=== PATIENT | female | born 1980 | race Two or more races ===

== ENCOUNTER 2016-06-25 15:02 | Emergency (ER) | payer OTHER ==
[2016-06-25 15:11] VITALS: PULSE 88; BMI 20.9
--- NOTE | 2016-06-25 15:46 | PDOC ---
History of Present Illness - General Chief Complaint: Shortness of Breath Stated Complaint: ABNORMAL LABS Time Seen by Provider: 06/25/16 15:22 History Source: Patient Exam Limitations: Language Barrier (translation provided by medical equipment technician) - History of Present Illness Initial Comments: 36 yo F 16 weeks presented to the ED with shortness of breath since last night. She was laying in bed and trying to sleep when the shortness of breath started with chest pain located in upper left chest, non-radiating, 5/10 , pressure like, worse with deep breath, not reproducible with touch/palpation. Denies exertional chest pain or sob, recent travel, hemoptysis, fever, chills. Past History - Past Medical History Allergies/Adverse Reactions: Allergies Allergy/AdvReac Type Severity Reaction Status Date / Time No Known Allergies Allergy Verified 06/25/16 15:08 - Psycho/Social/Smoking Cessation Hx Suicidal Ideation: No Smoking History: Never smoked Review of Systems - Review of Systems Able to Perform ROS?: Yes Is the patient limited Bahraini proficient: No Constitutional: No: Chills, Fever Respiratory: Yes: Shortness of Breath, SOB at Rest. No: Cough, SOB with Exertion Cardiac (ROS): Yes: Chest Pain ABD/GI: No: Abdominal cramping : No: Dysuria Neurological: Yes: Headache *Physical Exam - Vital Signs Last Vital Signs Temp Pulse Resp BP Pulse Ox 98.1 F 88 18 119/62 100 06/25/16 15:08 06/25/16 15:08 06/25/16 15:08 06/25/16 15:08 06/25/16 15:08 - Physical Exam General Appearance: No: Apparent Distress Respiratory/Chest: positive: Lungs Clear, Normal Breath Sounds Cardiovascular: positive: Regular Rhythm, Regular Rate, S1, S2, Murmur Gastrointestinal/Abdominal: negative: Distended, Guarding, Rebound, Tenderness Extremity: negative: Swelling, Calf Tenderness Neurologic: positive: Fully Oriented, Alert ED Treatment Course - LABORATORY CBC & Chemistry Diagram: 06/25/16 16:32 06/25/16 16:32 Medical Decision Making - Medical Decision Making 06/25/16 16:02 36 yo 16 weeks F c/o dyspnea with chest pain. Will obtain EKG, troponin to r/o ACS, d-dimer to r/o PE. 06/25/16 16:10 Discussed with patient through freelance interpreter/translator and explained risks of CTA during to r/o PE. Pt declined CTA if d-dimer is positive. 06/25/16 19:07 Will discharge the patient. All lab works within normal limits. *DC/Admit/Observation/Transfer Diagnosis at time of Disposition: Shortness of breath - Discharge Dispostion Disposition: HOME Condition at time of disposition: Stable Admit: No - Patient Instructions Printed Discharge Instructions: DI for Shortness of Breath Print Language: QATARI
--- NOTE | 2016-06-25 16:49 | PDOC ---
Attending Attestation - Resident Resident Name: MarreroSixto - ED Attending Attestation I have performed the following: I have examined & evaluated the patient, The case was reviewed & discussed with the resident, I agree w/resident's findings & plan, Exceptions are as noted - HPI HPI: 06/25/16 16:46 36-year-old female with no past medical history, approximately 16 weeks presents with chest pain short of breath since yesterday. Patient reports that she was doing nothing particular at the time when she developed shortness of breath and chest pressure. She reports of the chest pressure is constant and is pleuritic. There is no radiation. She is unsure if this is exertional. Denies fevers or chills. Denies abdominal pain or acid reflux conditions. Denies prior history of pulmonary embolism or blood clots. Patient denies recent traveling or recent surgery. She was seen by her doctor and was sent the ED for further evaluation. Family history significant for cardiac disease with her father but diagnosed when he was much older. - Physicial Exam PE: 06/25/16 16:48 GENERAL: Awake, alert, and fully oriented, in no acute distress. HEAD: No signs of trauma EYES: PERRLA, EOMI, sclera anicteric, conjunctiva clear ENT: Auricles normal inspection, hearing grossly normal, nares patent, oropharynx clear without exudates. NECK: Normal ROM, supple, no lymphadenopathy, JVD, or masses LUNGS: Breath sounds equal, clear to auscultation bilaterally. No wheezes, and no crackles HEART: Regular rate and rhythm, normal S1 and S2, no murmurs, rubs or gallops ABDOMEN: Soft, nontender, normoactive bowel sounds. No guarding, no rebound. No masses EXTREMITIES: Normal range of motion, no edema. No clubbing or cyanosis. No cords, erythema, or tenderness NEUROLOGICAL: Cranial nerves II through XII grossly intact. Normal speech, normal gait SKIN: Warm, Dry, normal turgor, no rashes or lesions noted. - Medical Decision Making 06/25/16 16:50 Given the , the patient will need to rule out for pulmonary embolism. Initially, I had discussed about getting a CAT scan of the chest to rule out pulmonary embolism. However, the patient has been having concerns for radiation given her . I have explained that there is some risk of radiation to the fetus. However, there are some concerns for pulmonary embolism given the pleuritic chest pain in her . Given the situation, we had currently agreed to send a d-dimer and reassess. However, we'll need to readdress once results back. Regardless, if the patient refuses CAT scan the chest, the patient does have capacity to do so. She is aware of the risks. If she should ultimately refuse, the patient will be doing so against medical advice. Heart Score/ECG Review - History History: Slightly suspicious - Electrocardiogram EKG: Normal - Age Age: </= 45 - Risk Factors Risk Factors Heart Score: Yes Positive family hx of cardiac disease Based on the list above the patient has:: 1-2 risk factors - Troponin Troponin: </= normal limit - Score Heart Score - Total: 1 #1 ECG reviewed & interpreted by me at: 15:20 06/25/16 16:45 NSR 85, no std/keri, normal axis, normal intervals, QTC 442 msec. No signs of right heart strain.
[2016-06-25 17:02] LABS: BASOPHIL 0.3 % (0-2.0); EOSINOPHIL 0.6 % (0-4.5); PLATELET COUNT 217 K/MM3 (134-434); RDW 13.3 % (11.6-15.6)
[2016-06-25] MEDS ORDERED: ACETAMINOPHEN 325 MG TABLET (FP) PO ONE (17:05)
[2016-06-25 17:18] LABS: ALBUMIN 3.5 g/dl (3.4-5.0); ANION GAP 9 (8-16); BILIRUBIN,TOTAL 0.4 mg/dL (0.2-1.0); CALCIUM 8.9 mg/dL (8.5-10.1); CO2 22 mmol/L (21-32); COCKROFT - GAULT 138.4905; CREATININE 0.5 mg/dL (0.55-1.02); GLUCOSE,RANDOM 75 mg/dL (74-106); SGOT/AST 13 U/L (15-37); SGPT/ALT 12 U/L (12-78); TOT PROT 6.6 g/dl (6.4-8.2)
[2016-06-25 17:20] LABS: ALK PHOS 59 U/L (45-117); TROPONIN I < 0.02 ng/ml (0.00-0.05)
[2016-06-25 17:22] LABS: MCH 30.5 pg (25.7-33.7); MCHC 34.5 g/dl (32.0-36.0); MEAN CELL VOLUME 88.4 fl (80-96); MEAN PLT VOLUME 9.6 fl (7.5-11.1); WHITE BLOOD COUNT 10.1 K/mm3 (4.0-10.0)
[2016-06-25] MEDS ORDERED: ACETAMINOPHEN 325 MG TABLET (FP) ONE (17:38)
[2016-06-25 18:09] LABS: INR 1.09 (0.82-1.09)
[2016-06-25 19:18] VITALS: BP 113/78; TEMP 98.3
--- NOTE | 2016-06-26 22:58 | EKG ---
Test Reason : Blood Pressure : / mmHG Vent. Rate : 085 BPM Atrial Rate : 085 BPM P-R Int : 136 ms QRS Dur : 074 ms QT Int : 372 ms P-R-T Axes : 050 057 053 degrees QTc Int : 442 ms NORMAL SINUS RHYTHM NORMAL ECG NO PREVIOUS ECGS AVAILABLE Confirmed by JERAMY VITAL MD ([id number]) on 06/26/2016 10:58:08 PM Referred By: Confirmed By:JERAMY VITAL MD
--- NOTE | 2016-06-28 17:34 | EKG ---
Test Reason : Blood Pressure : / mmHG Vent. Rate : 082 BPM Atrial Rate : 082 BPM P-R Int : 148 ms QRS Dur : 082 ms QT Int : 400 ms P-R-T Axes : 049 044 040 degrees QTc Int : 467 ms NORMAL SINUS RHYTHM NORMAL ECG WHEN COMPARED WITH ECG OF 25-JUN-2016 15:20, NO SIGNIFICANT CHANGE WAS FOUND Confirmed by JASON DOMINGUEZ MD ([id number]) on 06/28/2016 5:33:48 PM Referred By: Confirmed By:JASON DOMINGUEZ MD
== END 2016-06-25 19:17 | disposition home or self-care (01) ==
LOC: JER 15:02
DX: O26.892 Other specified pregnancy related conditions, second trimester (principal); R06.02 Shortness of breath; Z3A.16 16 weeks gestation of pregnancy
CPT/HCPCS: 36415; 80053; 82550; 83735; 83880; 84484; 85025; 85379; 85610; 85730; 93005; 93010; 99282-25

== ENCOUNTER 2016-11-18 05:05 | Inpatient (IN) | payer OTHER ==
[2016-11-18] MEDS ORDERED: AMPICILLIN 2 GM/100 ML BAG (PRE-DOCKED) IVPB ONE (06:00)
[2016-11-18] MEDS: ELECTROLYTE-148 SOLN 1,000 ML IV SCH (06:00)
[2016-11-18 06:14] LABS: BASOPHIL 0.5 % (0-2.0); EOSINOPHIL 2.5 % (0-4.5); MCH 30.3 pg (25.7-33.7); MCHC 34.5 g/dl (32.0-36.0); MEAN CELL VOLUME 87.9 fl (80-96); MEAN PLT VOLUME 9.5 fl (7.5-11.1); NEUTROPHILS 69.5 % (42.8-82.8); PLATELET COUNT 256 K/MM3 (134-434); RDW 12.9 % (11.6-15.6); WHITE BLOOD COUNT 12.1 K/mm3 (4.0-10.0)
[2016-11-18 06:29] LABS: INR 0.99 (0.82-1.09); PROTHROMBIN TIME (PATIENT) 10.9 SEC (9.98-11.88)
[2016-11-18 06:31] LABS: ACTIVATED PTT 28.1 SECONDS (26.9-34.4)
[2016-11-18 06:38] LABS: ANION GAP 10 (8-16); CALCIUM 8.7 mg/dL (8.5-10.1); CO2 21 mmol/L (21-32); CREATININE 0.7 mg/dL (0.55-1.02); GLUCOSE,RANDOM 95 mg/dL (74-106)
[2016-11-18 07:00] VITALS: BMI 24.7
--- NOTE | 2016-11-18 07:04 | HP ---
Past Medical History - Admission Chief Complaint: Labor pain History of Present Illness: 36 yo @ 38 weeks gestation, EDC 11/29/16, presents c/o labor pain History Source: Patient - Past Medical History ...: 3 ...Para: 1 - Past Surgical History Past Surgical History: Yes: None Hx Myomectomy: No Hx Transabdominal Cerclage: No - Smoking History Smoking history: Never smoked - Alcohol/Substance Use Hx Alcohol Use: No History of Substance Use: reports: None - Social History Usual Living Arrangement: Yes: With Significant Other History of Recent Travel: No Home Medications - Allergies Allergies/Adverse Reactions: Allergies Allergy/AdvReac Type Severity Reaction Status Date / Time No Known Allergies Allergy Verified 11/18/16 06:11 - Home Medications Home Medications: Ambulatory Orders Vitamins (Sjr) - 1 tab PO DAILY 11/18/16 Ranitidine [Zantac -] 150 mg PO BID 11/18/16 Family Disease History - Family Disease History Family History: Unremarkable Review of Systems - Review of Systems Constitutional: reports: No Symptoms Eyes: reports: No Symptoms HENT: reports: No Symptoms Neck: reports: No Symptoms Cardiovascular: reports: No Symptoms Respiratory: reports: No Symptoms Gastrointestinal: reports: No Symptoms Genitourinary: reports: Pain Breasts: reports: No Symptoms Reported Musculoskeletal: reports: No Symptoms Integumentary: reports: No Symptoms Neurological: reports: No Symptoms Endocrine: reports: No Symptoms Hematology/Lymphatic: reports: No Symptoms Psychiatric: reports: No Symptoms Pain Intensity: 10 Physical Exam - Maternity Constitutional: Yes: Well Nourished Eyes: Yes: Conjunctiva Clear HENT: Yes: Atraumatic Neck: Yes: Supple, Trachea Midline Cardiovascular: Yes: Regular Rate and Rhythm Lungs: Clear to auscultation Breast(s): Yes: WNL - Abdominal Exam/OB Number of Fetuses: Single Presentation: Vertex Contractions: No - Vaginal Exam/OB Speculum Exam: No Dilatation (cm): 6 Effacement (%): 100 Amniotic Membrane Status: Intact Station: -2 - Physical Exam Musculoskeletal: Yes: WNL ...Motor Strength: WNL Psychiatric: Yes: Alert, Oriented - Labs Lab Results: CBC, BMP 11/18/16 06:00 Problem List - Problems (1) Pain during labor Code(s): O99.89 - OTH DISEASES AND CONDITIONS COMPL PREG/CHLDBRTH R52 - PAIN, UNSPECIFIED Assessment/Plan Active labor Admit to L&D Anticipate
[2016-11-18] MEDS: D5W-LR W/ 20 UNITS OXYTOCIN 1,000 ML IV SCH ×2 (07:45→09:31)
[2016-11-18] MEDS ORDERED: BENZOCAINE 28 GM HEMORRHOIDAL OINTMENT TP PRN (08:00)
[2016-11-18] MEDS ORDERED: ACETAMINOPHEN 325 MG TABLET (FP) PO PRN (08:00)
[2016-11-18] MEDS ORDERED: WITCH HAZEL 50% (TUCKS) 40 PAD/JAR PAD TP PRN (08:00)
[2016-11-18] MEDS ORDERED: BENZOCAINE 20% 57 GM BOTTLE TP PRN (08:00)
[2016-11-18] MEDS ORDERED: BISACODYL 10 MG SUPP.RECT RC PRN (08:00)
[2016-11-18] MEDS ORDERED: METHYLERGONOVINE MALEATE 0.2 MG/1 ML AMP IM PRN (08:00)
[2016-11-18] MEDS: IBUPROFEN 600 MG TABLET (FP) PO PRN ×2 (08:04→21:33)
--- NOTE | 2016-11-18 08:09 | PN ---
Delivery - Delivery Vaginal Delivery: Spontaneous Episiotomy/Laceration: 1st degree EBL (cc): 300 Delivery, Single - [place] Feeding Plan Initial Plan: Elected not to breastfeed exclusively throughout hospitalization Remarks - Remarks Remarks: Normal spontaneous vaginal delivery of a live over first degree laceration. Nose / Oropharynx suctioned @ perineum. Cord clamped and cut. Placenta expelled spontaneously intact. Laceration repaired with 2.0 Biosyn.
[2016-11-18] MEDS ORDERED: AMPICILLIN (PRE-DOCKED) 1 GM/100 ML BAG IVPB SCH (10:00)
[2016-11-18] MEDS: PRENATAL VITAMINS W/ FOLIC ACID TABLET (FP) PO SCH (10:38)
[2016-11-18] MEDS: FERROUS SO4 325 MG TABLET (FP) PO SCH ×3 (10:38→17:35)
[2016-11-19 07:24] LABS: BASOPHIL 0.3 % (0-2.0); EOSINOPHIL 3.6 % (0-4.5); MCHC 33.6 g/dl (32.0-36.0); MEAN CELL VOLUME 89.4 fl (80-96); MEAN PLT VOLUME 9.1 fl (7.5-11.1); NEUTROPHILS 66.2 % (42.8-82.8); PLATELET COUNT 200 K/MM3 (134-434); RDW 13.2 % (11.6-15.6); WHITE BLOOD COUNT 13.2 K/mm3 (4.0-10.0)
[2016-11-19] MEDS: FERROUS SO4 325 MG TABLET (FP) PO SCH ×3 (08:32→17:55)
--- NOTE | 2016-11-19 10:01 | PN ---
Post Progress Note - Subjective Subjective: 36 yo Para 2, status post vaginal delivery, seen and evaluated. Doing well. Post Day: 1 Type of Delivery: Vital Signs: Vital Signs Temperature 98.6 F 11/19/16 09:07 Pulse Rate 65 11/19/16 09:07 Respiratory Rate 18 11/19/16 09:07 Blood Pressure 97/59 11/19/16 09:07 O2 Sat by Pulse Oximetry (%) Breast Exam: Yes: Soft Uterus: Yes: Fundus Firm Abdomen/GI: Yes: Abdomen soft, Tolerating PO Lochia: Yes: Rubra Lochia, amount: Small Extremities: Yes: Calves non-tender Perineum: Yes: Intact Activity: Ambulating - Labs Labs: CBC WBC 13.2 K/mm3 (4.0-10.0) H 11/19/16 06:30 RBC 3.51 M/mm3 (3.60-5.2) L 11/19/16 06:30 Hgb 10.5 GM/dL (10.7-15.3) L D 11/19/16 06:30 Hct 31.4 % (32.4-45.2) L 11/19/16 06:30 MCV 89.4 fl (80-96) 11/19/16 06:30 MCH 30.0 pg (25.7-33.7) 11/19/16 06:30 MCHC 33.6 g/dl (32.0-36.0) 11/19/16 06:30 RDW 13.2 % (11.6-15.6) 11/19/16 06:30 Plt Count 200 K/MM3 (134-434) D 11/19/16 06:30 MPV 9.1 fl (7.5-11.1) 11/19/16 06:30 Neutrophils % 66.2 % (42.8-82.8) 11/19/16 06:30 Lymphocytes % 22.7 % (8-40) 11/19/16 06:30 Monocytes % 7.2 % (3.8-10.2) 11/19/16 06:30 Eosinophils % 3.6 % (0-4.5) 11/19/16 06:30 Basophils % 0.3 % (0-2.0) 11/19/16 06:30 Problem List - Problems (1) Pain during labor Code(s): O99.89 - OTH DISEASES AND CONDITIONS COMPL PREG/CHLDBRTH R52 - PAIN, UNSPECIFIED Assessment/Plan Status post vaginal delivery Stable Continue routine care
[2016-11-19] MEDS: PRENATAL VITAMINS W/ FOLIC ACID TABLET (FP) PO SCH (10:44)
[2016-11-19] MEDS: D5W-LR W/ 20 UNITS OXYTOCIN 1,000 ML IV SCH (12:21)
[2016-11-19] MEDS: ELECTROLYTE-148 SOLN 1,000 ML IV SCH (12:21)
[2016-11-19] MEDS ORDERED: SENNOSIDES/DOCUSATE COMBO (SENNA PLUS) TABLET (UD) PO PRN (22:00)
[2016-11-20] MEDS: FERROUS SO4 325 MG TABLET (FP) PO SCH ×2 (08:00→12:01)
[2016-11-20] MEDS: ELECTROLYTE-148 SOLN 1,000 ML IV SCH (09:07)
[2016-11-20] MEDS: D5W-LR W/ 20 UNITS OXYTOCIN 1,000 ML IV SCH (09:08)
[2016-11-20] MEDS: PRENATAL VITAMINS W/ FOLIC ACID TABLET (FP) PO SCH (10:00)
[2016-11-20 13:11] VITALS: BP 97/62; PULSE 76; TEMP 98.1
== END 2016-11-20 12:50 | disposition home or self-care (01) | DRG 560 ==
LOC: JDEL 05:05 → JLDR 05:40 → J3W 10:22
PROVIDERS: ADMIT Obstetrics & Gynecology; ATTEND Obstetrics & Gynecology
PROC: 10E0XZZ Delivery of Products of Conception, External Approach (ICD-10-PCS; principal; 2016-11-18)
PROC: 0HQ9XZZ Repair Perineum Skin, External Approach (ICD-10-PCS; 2016-11-18)
DX: O70.0 First degree perineal laceration during delivery (principal); Z3A.38 38 weeks gestation of pregnancy; Z37.0 Single live birth
CPT/HCPCS: 36415; 59409; 80048; 85025; 85610; 85730; 86593; 86850; 86900; 86901

== ENCOUNTER 2018-03-17 23:57 | Emergency (ER) | payer OTHER ==
--- NOTE | 2018-03-18 00:53 | PDOC ---
*Physical Exam - Vital Signs Last Vital Signs Temp Pulse Resp BP Pulse Ox 97.8 F 90 18 110/79 100 03/17/18 23:57 03/17/18 23:57 03/17/18 23:57 03/17/18 23:57 03/17/18 23:57 ED Treatment Course - LABORATORY CBC & Chemistry Diagram: 03/18/18 02:10 Medical Decision Making - Medical Decision Making 03/18/18 00:53 Patient seen by the advanced practice provider under my direct supervision. Ancillary testing reviewed as necessary. I agree with plan as outlined by the advanced practice provider. 03/18/18 00:53 *DC/Admit/Observation/Transfer Diagnosis at time of Disposition: Vaginal bleeding - Discharge Dispostion Condition at time of disposition: Fair - Referrals - Patient Instructions - Post Discharge Activity
[2018-03-18 00:57] VITALS: BMI 18.6
--- NOTE | 2018-03-18 01:08 | PDOC ---
History of Present Illness - General Chief Complaint: Vaginal Bleeding Stated Complaint: VAGINAL BLEEDING Time Seen by Provider: 03/18/18 00:46 History Source: Patient - History of Present Illness Initial Comments: 03/18/18 04:51 37 year old female Complaining of persistent vaginal bleeding since 7 PM. Patient reports that she had an on February 28 at a clinic and has been having spotting since then. Patient reports some pelvic pain. Denies urinary symptoms, nausea, vomiting, abdominal pain. Past History - Past Medical History Allergies/Adverse Reactions: Allergies Allergy/AdvReac Type Severity Reaction Status Date / Time No Known Allergies Allergy Verified 03/18/18 00:50 Home Medications: Ambulatory Orders Vitamins (Sjr) - 1 tab PO DAILY 11/18/16 Ranitidine [Zantac -] 150 mg PO BID 11/18/16 Ibuprofen 600 mg PO QID PRN #20 tablet 03/18/18 Methylergonovine Maleate [Methergine] 0.2 mg PO DAILY #1 tablet 03/18/18 Asthma: No Cancer: No Cardiac Disorders: No Diabetes: No HTN: No Seizures: No Thyroid Disease: No - Suicide/Smoking/Psychosocial Hx Smoking History: Never smoked Have you smoked in the past 12 months: No Information on smoking cessation initiated: No Hx Alcohol Use: No Drug/Substance Use Hx: No Hx Substance Use Treatment: No Review of Systems - Review of Systems Able to Perform ROS?: Yes Is the patient limited Haitian proficient: No Constitutional: No: Symptoms Reported, See HPI, Chills, Diaphoresis, Fever, Malaise, Night Sweats, Weakness, Weight Stable, Unintentional Wgt. Loss, Unexplained wgt Loss, Other *Physical Exam - Vital Signs Last Vital Signs Temp Pulse Resp BP Pulse Ox 97.8 F 90 18 110/79 100 03/17/18 23:57 03/17/18 23:57 03/17/18 23:57 03/17/18 23:57 03/17/18 23:57 - Physical Exam General Appearance: Yes: Appropriately Dressed Female Pelvic Exam: positive: normal external exam, vaginal bleeding (blood pouring out unable to visualize the cervix). negative: adnexal tenderness Neurologic: positive: Fully Oriented, Alert, Normal Mood/Affect Moderate Sedation - Procedure Monitoring Vital Signs: Procedure Monitoring Vital Signs Temperature 97.8 F 03/17/18 23:57 Pulse Rate 90 03/17/18 23:57 Respiratory Rate 18 03/17/18 23:57 Blood Pressure 110/79 03/17/18 23:57 O2 Sat by Pulse Oximetry (%) 100 03/17/18 23:57 ED Treatment Course - LABORATORY CBC & Chemistry Diagram: 03/18/18 02:10 Medical Decision Making - Medical Decision Making 03/18/18 03:[address] fonseca would like an emergency ultrasound, 03/18/18 04:42 TVUS: No ovarian torsion. Color flow with appropriate arterial and venous waveforms. No free fluid. Normal size uterus. Endometrial stripe complex 18 mm thick. Complex material in endometrial cavity and endocervical canal, possibly blood products. 03/18/18 04:[address] fonseca recommends methergine 0.2mg q4h x 1 day, patient to return to the ED for reevaluation *DC/Admit/Observation/Transfer Diagnosis at time of Disposition: Vaginal bleeding, Retained products of conception - Discharge Dispostion Disposition: HOME Condition at time of disposition: Fair - Prescriptions Prescriptions: Ibuprofen 600 mg PO QID PRN #20 tablet PRN Reason: Pain Methylergonovine Maleate [Methergine] 0.2 mg PO DAILY #1 tablet - Referrals - Patient Instructions Printed Discharge Instructions: DI for Vaginal Bleeding Additional Instructions: return to the ER immediately if you are soaking two pads per hour, severe abdominal pain fever/ chills return tomorrow to the ER for repeat ultrasound - Post Discharge Activity Forms/Work/School Notes: Back to Work
[2018-03-18] MEDS ORDERED: SODIUM CHLORIDE 0.9% 500 ML INFUS.BAG IV ONE (01:24)
[2018-03-18 02:21] LABS: BASO % 0.3 % (0-2.0); EOS % 1.3 % (0-4.5); HEMATOCRIT 30.1 % (32.4-45.2); LYMPH % 14.9 % (8-40); MCH 29.8 pg (25.7-33.7); MCHC 33.3 g/dl (32.0-36.0); MEAN CELL VOLUME 89.3 fl (80-96); MEAN PLT VOLUME 8.9 fl (7.5-11.1); MONO % 4.3 % (3.8-10.2); NEUT % 79.2 % (42.8-82.8); PLATELET COUNT 348 K/MM3 (134-434); RBC 3.37 M/mm3 (3.60-5.2); RDW 13.7 % (11.6-15.6); URINE APPEARANCE CLOUDY; URINE BILIRUBIN NEGATIVE (<2.0 mg/dL); URINE COLOR LTYELLOW; URINE GLUCOSE (UA) NEGATIVE (NEGATIVE); URINE KETONE NEGATIVE (NEGATIVE); URINE LEUK ESTERASE NEGATIVE (NEGATIVE); URINE NITRITE NEGATIVE (NEGATIVE); URINE PROTEIN 1+ (NEGATIVE); URINE UROBILINOGEN NEGATIVE mg/dL (0.2-1.0); WHITE BLOOD COUNT 12.1 K/mm3 (4.0-10.0)
[2018-03-18 02:37] LABS: INR 1.09 (0.83-1.09); PROTHROMBIN TIME (PATIENT) 12.9 SEC (9.7-13.0)
[2018-03-18 02:40] LABS: EPI CELLS RARE /HPF (FEW); URINE MUCUS RARE
[2018-03-18] MEDS ORDERED: KETOROLAC TROMETHAMINE 30 MG/1 ML VIAL IVPUSH ONE (04:49)
[2018-03-18] MEDS ORDERED: KETOROLAC TROMETHAMINE 30 MG/1 ML VIAL ONE (04:56)
[2018-03-18] MEDS ORDERED: METHYLERGONOVINE MALEATE 0.2 MG TABLET (FP) PO ONE (05:30)
[2018-03-18 05:56] VITALS: BP 110/76; PULSE 89; TEMP 98.5
== END 2018-03-18 05:56 | disposition home or self-care (01) ==
LOC: JER 23:57
PROC: 3E0333Z Introduction of Anti-inflammatory into Peripheral Vein, Percutaneous Approach (ICD-10-PCS; principal; 2018-03-17)
DX: O03.1 Delayed or excessive hemorrhage following incomplete spontaneous abortion (principal)
CPT/HCPCS: 36415; 76817-TC; 81003; 81015; 84702; 85025; 85610; 86850; 86900; 86901; 96374; 99282-25

== ENCOUNTER 2020-04-25 17:22 | Emergency (ER) | payer OTHER ==
[2020-04-25 17:56] VITALS: BMI 27.4
[2020-04-25 20:54] LABS: BASO % 0.8 % (0-2.0); EOS % 5.2 % (0-4.5); HEMATOCRIT 38.3 % (32.4-45.2); HEMOGLOBIN 12.7 GM/dL (10.7-15.3); LYMPH % 34.4 % (8-40); MCH 29.9 pg (25.7-33.7); MCHC 33.3 g/dl (32.0-36.0); MEAN CELL VOLUME 89.9 fl (80-96); MEAN PLT VOLUME 9.9 fl (7.5-11.1); MONO % 6.1 % (3.8-10.2); NEUT % 53.5 % (42.8-82.8); PLATELET COUNT 258 K/MM3 (134-434); RBC 4.26 M/mm3 (3.60-5.2); RDW 13.8 % (11.6-15.6); WHITE BLOOD COUNT 6.6 K/mm3 (4.0-10.0)
[2020-04-25 21:09] LABS: CHLORIDE 110 mmol/L (98-107); POTASSIUM 4.1 mmol/L (3.5-5.1); SODIUM 140 mmol/L (136-145)
[2020-04-25 21:11] LABS: CALCIUM 8.5 mg/dL (8.5-10.1)
[2020-04-25 21:12] LABS: ANION GAP 6 MMOL/L (8-16); BLOOD UREA NITROGEN 11.4 mg/dL (7-18); CO2 24 mmol/L (21-32); GLUCOSE,RANDOM 104 mg/dL (74-106); MAGNESIUM 2.3 mg/dL (1.8-2.4)
[2020-04-25 21:15] LABS: CREATININE 0.7 mg/dL (0.55-1.3); SGOT/AST 16 U/L (15-37); SGPT/ALT 20 U/L (13-61)
[2020-04-25 21:17] LABS: BILIRUBIN,TOTAL 0.3 mg/dL (0.2-1); TOT PROT 7.5 g/dl (6.4-8.2)
[2020-04-25 21:18] LABS: ALK PHOS 76 U/L (45-117)
[2020-04-25 21:37] VITALS: BP 128/75; PULSE 88; TEMP 98.6
== END 2020-04-25 21:37 | disposition home or self-care (01) ==
LOC: JER 17:22
DX: R07.89 Other chest pain (principal); R05 Cough; R06.02 Shortness of breath
CPT/HCPCS: 36415; 71046-TC-FY; 80053; 82550; 83735; 84484; 85025; 93005; 93010; 99285-25

== ENCOUNTER 2021-01-21 13:30 | Inpatient (IN) | payer OTHER ==
[2021-01-21] MEDS: ELECTROLYTE-148 SOLN 1,000 ML IV SCH (13:55)
[2021-01-21] MEDS ORDERED: AMPICILLIN - 2 GM in SODIUM CHLORIDE 100 ML IVPB ONE ×2 (14:00→14:01)
[2021-01-21] MEDS ORDERED: AMPICILLIN SODIUM 2 GM VIAL ONE (14:04)
[2021-01-21 14:48] VITALS: BMI 25.4
[2021-01-21] MEDS ORDERED: LIDOCAINE HCL 1% PRESERVATIVE FREE - 30ML VIAL ONE (14:49)
[2021-01-21] MEDS ORDERED: OXYTOCIN 20 UNITS in 0.9% NS 20 UNIT/1,000 ML INFUS.BAG IV ONE ×2 (14:49→18:21)
[2021-01-21 15:23] LABS: BLOOD UREA NITROGEN 5.6 mg/dL (7-18); CALCIUM 8.6 mg/dL (8.5-10.1)
[2021-01-21 15:24] LABS: BASO % 0.3 % (0-2.0); EOS % 0.8 % (0-4.5); HEMATOCRIT 37.1 % (32.4-45.2); HEMOGLOBIN 12.5 GM/dL (10.7-15.3); LYMPH % 12.1 % (8-40); MCHC 33.7 g/dl (32.0-36.0); MEAN CELL VOLUME 89.1 fl (80-96); MEAN PLT VOLUME 9.5 fl (7.5-11.1); MONO % 5.1 % (3.8-10.2); NEUT % 81.7 % (42.8-82.8); PLATELET COUNT 221 10^3/uL (134-434); RBC 4.17 M/mm3 (3.60-5.2); RDW 13.9 % (11.6-15.6)
[2021-01-21 15:27] LABS: CREATININE 0.5 mg/dL (0.55-1.3)
[2021-01-21 15:34] LABS: INR 0.97 (0.83-1.09); PROTHROMBIN TIME (PATIENT) 10.9 SEC (9.7-13.0)
[2021-01-21 15:37] LABS: ACTIVATED PTT 28.7 SECONDS (25.2-36.5)
[2021-01-21] MEDS: OXYTOCIN 20 UNITS in 0.9% NS 20 UNIT/1,000 ML INFUS.BAG IV SCH ×2 (16:40→18:23)
[2021-01-21] MEDS ORDERED: WITCH HAZEL 50% (TUCKS) 40 PAD/JAR PAD TP PRN (16:49)
[2021-01-21] MEDS ORDERED: BENZOCAINE 28 GM HEMORRHOIDAL OINTMENT TP PRN (16:49)
[2021-01-21] MEDS ORDERED: BISACODYL 10 MG SUPP.RECT RC PRN (16:49)
[2021-01-21] MEDS ORDERED: BENZOCAINE 20% 57 GM BOTTLE TP PRN (16:49)
[2021-01-21] MEDS ORDERED: IBUPROFEN 600 MG TABLET (FP) PO ONE (17:12)
[2021-01-21] MEDS ORDERED: ACETAMINOPHEN 325 MG TABLET (FP) ONE (17:12)
[2021-01-21] MEDS: IBUPROFEN 600 MG TABLET (FP) PO PRN ×2 (17:15→23:37)
[2021-01-21] MEDS: ACETAMINOPHEN 325 MG TABLET (FP) PO PRN ×2 (17:15→20:21)
[2021-01-21] MEDS ORDERED: MISOPROSTOL 200 MCG TABLET ONE (17:19)
[2021-01-21] MEDS ORDERED: AMPICILLIN - 1 GM in SODIUM CHLORIDE 100 ML IVPB SCH (18:00)
[2021-01-22 08:30] LABS: BASO % 0.4 % (0-2.0); HEMATOCRIT 32.7 % (32.4-45.2); LYMPH % 13.5 % (8-40); MCH 30.5 pg (25.7-33.7); MCHC 33.6 g/dl (32.0-36.0); MEAN CELL VOLUME 90.8 fl (80-96); MEAN PLT VOLUME 9.5 fl (7.5-11.1); MONO % 6.7 % (3.8-10.2); NEUT % 78.4 % (42.8-82.8); PLATELET COUNT 198 10^3/uL (134-434); RDW 13.8 % (11.6-15.6); WHITE BLOOD COUNT 17.6 K/mm3 (4.0-10.0)
[2021-01-22] MEDS: IBUPROFEN 600 MG TABLET (FP) PO PRN ×3 (09:21→19:48)
[2021-01-22] MEDS: ELECTROLYTE-148 SOLN 1,000 ML IV SCH (14:02)
[2021-01-22] MEDS ORDERED: SENNOSIDES/DOCUSATE COMBO (SENNA PLUS) TABLET (UD) PO PRN (22:00)
[2021-01-22] MEDS: ACETAMINOPHEN 325 MG TABLET (FP) PO PRN (22:52)
[2021-01-23] MEDS: ACETAMINOPHEN 325 MG TABLET (FP) PO PRN (05:10)
[2021-01-23 09:12] VITALS: BP 107/63; PULSE 63; TEMP 98.3
[2021-01-23] MEDS: IBUPROFEN 600 MG TABLET (FP) PO PRN (12:05)
== END 2021-01-23 14:15 | disposition home or self-care (01) | DRG 560 ==
LOC: JDEL 13:30 → JLDR 13:58 → J3W 19:56
PROVIDERS: ADMIT Student in an Organized Health Care Education/Training Program; ATTEND Student in an Organized Health Care Education/Training Program
PROC: 10E0XZZ Delivery of Products of Conception, External Approach (ICD-10-PCS; principal; 2021-01-21)
DX: O72.1 Other immediate postpartum hemorrhage (principal); Z22.330 Carrier of Group B streptococcus; Z3A.38 38 weeks gestation of pregnancy; Z37.0 Single live birth
CPT/HCPCS: 36415; 59409; 80048; 85025; 85610; 85730; 86780; 86850; 86900; 86901; C9803; U0003; U0005

== ENCOUNTER 2021-10-20 04:27 | Day surgery (SDC) | payer OTHER ==
[2021-10-13 17:03] VITALS: BMI 22.3
[2021-10-20] MEDS ORDERED: oxyCODONE HCL 5 MG TABLET PO PRN ×2 (13:07)
[2021-10-20] MEDS ORDERED: LACTATED RINGERS SOLUTION 1,000 ML IV SCH (13:15)
[2021-10-20] MEDS ORDERED: ceFAZolin SODIUM 1 GM VIAL IVPB ONE (13:17)
[2021-10-20] MEDS ORDERED: ONDANSETRON 4 MG/2 ML VIAL ONE (13:28)
[2021-10-20] MEDS ORDERED: DEXAMETHASONE SOD PHOSPHATE 4 MG/1 ML VIAL ONE (13:28)
[2021-10-20] MEDS ORDERED: PROPOFOL 20 ML ONE (13:28)
[2021-10-20] MEDS ORDERED: MIDAZOLAM HCL 2 MG/2 ML SINGLE DOSE VIAL ONE (13:29)
[2021-10-20] MEDS ORDERED: ROCURONIUM BROMIDE 50 MG/5 ML SYRINGE ONE (13:29)
[2021-10-20] MEDS ORDERED: BUPIVACAINE HCL/PF 0.25% (2.5MG/ML) 10 ML VIAL ONE (14:00)
[2021-10-20] MEDS ORDERED: LIDOCAINE HCL 2% 100 MG/5 ML DISP.SYRIN ONE (14:02)
[2021-10-20] MEDS ORDERED: BUPIVACAINE HCL/PF 0.25% (2.5MG/ML) 10 ML VIAL IJ ONE ×2 (14:30)
[2021-10-20] MEDS ORDERED: HYDROmorphone HCl 2 MG/ML VIAL ONE (14:32)
[2021-10-20] MEDS ORDERED: GLYCOPYRROLATE 0.2 MG/1 ML VIAL ONE ×2 (14:36)
[2021-10-20] MEDS ORDERED: NEOSTIGMINE METHYLSULFATE 0.5 MG/ML - 10 ML MDV ONE (14:36)
[2021-10-20] MEDS ORDERED: ACETAMINOPHEN 1000 MG/100 ML BAG IVPB ONE ×2 (16:00→16:10)
[2021-10-20] MEDS ORDERED: KETOROLAC TROMETHAMINE 30 MG/1 ML VIAL ONE (16:01)
[2021-10-20] MEDS ORDERED: ACETAMINOPHEN INJECTION 100 ML IVPB ONE (16:02)
[2021-10-20 17:13] VITALS: RESP 16
[2021-10-20] MEDS ORDERED: ONDANSETRON *ODT* 4 MG TABLET ONE (18:45)
[2021-10-20] MEDS ORDERED: ONDANSETRON 4 MG TABLET PO ONE (18:49)
[2021-10-20 19:20] VITALS: BP 120/79; PULSE 68; TEMP 97.6
== END 2021-10-20 19:20 | disposition home or self-care (01) ==
LOC: JASU-SURG 04:27
PROVIDERS: ATTEND Obstetrics & Gynecology
PROC: 0UT74ZZ Resection of Bilateral Fallopian Tubes, Percutaneous Endoscopic Approach (ICD-10-PCS; principal; 2021-10-20 14:00)
DX: Z30.2 Encounter for sterilization (principal)
CPT/HCPCS: 88305-TC; 94760; Q0162